=== PATIENT | female | born 2000 | race Caucasian/White ===

== ENCOUNTER 2018-01-28 03:19 | Observation (INO) | payer OTHER ==
[~2018-01-28] VITALS: Ht 170.2 cm; Wt 72.0 kg
[~2018-01-28 03:19] MED LIST: Z.0.NO CURRENT MEDS
[2018-01-28 03:26] VITALS: BP 154/77; PULSE 96; RESP 16; TEMP 98.4; O2SAT 96
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
[2018-01-28] MEDS ORDERED: MORPHINE SULFATE 4 MG/ML INJ IV PUSH ONE ×2 (04:00→05:45)
[2018-01-28] MEDS ORDERED: ONDANSETRON HCL 4 MG/2 ML VIAL IV PUSH ONE (04:00)
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
[2018-01-28 06:03] VITALS: BP 120/61; PULSE 76; RESP 16; O2SAT 99
[2018-01-28] MEDS ORDERED: SODIUM CHLOR 0.9% 1000 ML INJ 1,000 ML IV SCH (06:12)
[2018-01-28] MEDS ORDERED: LACTULOSE SYRUP 20 GM/30 ML CUP PO PRN (06:30)
[2018-01-28] MEDS ORDERED: MAGNESIUM HYDROXIDE SUSP 30 ML CUP PO PRN (06:30)
[2018-01-28] MEDS ORDERED: ONDANSETRON HCL 4 MG/2 ML VIAL IVP PRN (06:30)
[2018-01-28] MEDS ORDERED: SENNOSIDES 8.6 MG TAB PO PRN (06:30)
[2018-01-28] MEDS ORDERED: ACETAMINOPHEN 325 MG TAB PO PRN (06:30)
[2018-01-28] MEDS ORDERED: BISACODYL 10 MG SUPP RECTAL PRN (06:30)
[2018-01-28] MEDS ORDERED: MORPHINE SULFATE 4 MG/ML INJ IV PUSH PRN (06:30)
[2018-01-28] MEDS ORDERED: NALOXONE HCL 0.4 MG/ML AMP IV PUSH PRN (06:30)
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
[2018-01-28 06:50] LABS: AUTOMATED NEUTROPHIL # 5.5 TH/MM3 (1.8-7.7); BASOPHIL % 0.2 % (0.0-2.0); EOSINOPHIL % 0.1 % (0.0-4.0); HEMATOCRIT 39.7 % (35.0-46.0); HEMOGLOBIN 13.7 GM/DL (11.6-15.3); LYMPH % 12.3 % (9.0-44.0); LYMPHOCYTE # 0.9 TH/MM3 (1.0-4.8); MEAN CELL VOLUME 85.1 FL (80.0-100.0); MEAN CORPUSCULAR HEMOGLOBIN 29.4 PG (27.0-34.0); MEAN CORPUSCULAR HGB CONC 34.5 % (32.0-36.0); MEAN PLATELET VOLUME 7.3 FL (7.0-11.0); MONO % 13.5 % (0.0-8.0); NEUT % 73.9 % (16.0-70.0); PLATELET COUNT 265 TH/MM3 (150-450); RED BLOOD COUNT 4.67 MIL/MM3 (4.00-5.30); RED CELL DISTRIBUTION WIDTH 12.9 % (11.6-17.2); WHITE BLOOD COUNT 7.4 TH/MM3 (4.0-11.0)
[2018-01-28] MEDS: SODIUM CHLOR 0.9% 1000 ML INJ 1,000 ML IV SCH ×2 (06:50→15:10)
[2018-01-28 07:10] LABS: INTERNATIONAL NORMALIZED RATIO 1.1 RATIO; PROTHROMBIN TIME - PATIENT 10.8 SEC (9.8-11.6)
[2018-01-28 07:15] LABS: BICARBONATE 26.5 MEQ/L (21.0-32.0); CALCIUM 8.6 MG/DL (8.5-10.1); CREATININE 0.71 MG/DL (0.50-1.00)
[2018-01-28] MEDS: DOCUSATE SODIUM 50 MG/SENNA 8.6 MG TAB PO SCH ×2 (08:14→21:35)
[2018-01-28] MEDS: SODIUM CHLORIDE 0.9% FLUSH 10 ML FLUSH IV FLUSH SCH ×2 (08:14→21:36)
[2018-01-28 08:34] VITALS: BP 127/72; PULSE 92; RESP 14; TEMP 98; O2SAT 98
[2018-01-28] MEDS: SODIUM CHLORIDE 0.9% FLUSH 10 ML FLUSH IV FLUSH PRN ×2 (08:55→14:18)
[2018-01-28] MEDS ORDERED: ACETAMINOPHEN/HYDROcodone 325 MG/5 MG TAB PO PRN (09:00)
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
[2018-01-28] MEDS: ACETAMINOPHEN/HYDROcodone 325 MG/7.5 MG TAB PO PRN ×3 (11:07→22:36)
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
[2018-01-28 17:21] VITALS: BP 127/58; PULSE 88; RESP 14; TEMP 97.4; O2SAT 98
[2018-01-28] MEDS ORDERED: MORPHINE SULFATE 2 MG/ML INJ IV PUSH PRN (18:30)
[2018-01-28 19:44] VITALS: BP 119/59; PULSE 96; RESP 18; TEMP 98.2; O2SAT 96
[2018-01-28] MEDS ORDERED: TEMAZEPAM 7.5 MG CAP PO ONE (20:15)
[2018-01-29] MEDS: SODIUM CHLOR 0.9% 1000 ML INJ 1,000 ML IV SCH (02:27)
[2018-01-29] MEDS: ACETAMINOPHEN/HYDROcodone 325 MG/7.5 MG TAB PO PRN ×2 (05:38→10:41)
[2018-01-29] MEDS ORDERED: IBUP1TAB5 PO ×2 (07:40→07:41)
[2018-01-29] MEDS ORDERED: HYDR-3516 PO (07:40)
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
[2018-01-29] MEDS ORDERED: CRUTMIS25 (07:44)
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
[2018-01-29] MEDS ORDERED: DOCU100C15 PO (09:31)
[2018-01-29 09:45] VITALS: BP 88/69; PULSE 93; RESP 18; TEMP 98.7; O2SAT 97
[2018-01-29 10:44] LABS: AUTOMATED NEUTROPHIL # 2.6 TH/MM3 (1.8-7.7); BASOPHIL % 0.3 % (0.0-2.0); HEMATOCRIT 37.7 % (35.0-46.0); HEMOGLOBIN 12.8 GM/DL (11.6-15.3); LYMPH % 27.2 % (9.0-44.0); LYMPHOCYTE # 1.3 TH/MM3 (1.0-4.8); MEAN CORPUSCULAR HEMOGLOBIN 29.2 PG (27.0-34.0); MEAN PLATELET VOLUME 7.3 FL (7.0-11.0); MONO % 16.4 % (0.0-8.0); MONOCYTE # 0.8 TH/MM3 (0-0.9); NEUT % 55.1 % (16.0-70.0); PLATELET COUNT 211 TH/MM3 (150-450); RED BLOOD COUNT 4.39 MIL/MM3 (4.00-5.30); RED CELL DISTRIBUTION WIDTH 12.9 % (11.6-17.2); WHITE BLOOD COUNT 4.7 TH/MM3 (4.0-11.0)
[2018-01-29 10:55] VITALS: BP 119/60
[2018-01-29 11:05] LABS: BICARBONATE 26.6 MEQ/L (21.0-32.0); CALCIUM 8.3 MG/DL (8.5-10.1); CREATININE 0.75 MG/DL (0.50-1.00)
== END 2018-01-29 11:14 | disposition home or self-care (01) ==
LOC: NEPD 03:19 → NEDA 06:09 → NEPFCDU 07:35
PROVIDERS: ADMIT Hospitalist; ATTEND Hospitalist
DX: S92.321A Displaced fracture of second metatarsal bone, right foot, initial encounter for closed fracture (principal); S92.331A Displaced fracture of third metatarsal bone, right foot, initial encounter for closed fracture; S92.341A Displaced fracture of fourth metatarsal bone, right foot, initial encounter for closed fracture; Y03.0XXA Assault by being hit or run over by motor vehicle, initial encounter; Y93.01 Activity, walking, marching and hiking; Y92.488 Other paved roadways as the place of occurrence of the external cause; J45.909 Unspecified asthma, uncomplicated; F17.210 Nicotine dependence, cigarettes, uncomplicated
CPT/HCPCS: 29515; 73610; 73630; 80048; 84703; 85025; 85610; 85730; 96361; 96374; 96375; 96376; 97116; 97162; 99285; E0113; G0378; G8987; G8988; J2270; J2405; J7030